=== PATIENT | male | born 1970 | race Caucasian/White ===

== ENCOUNTER 2018-10-12 01:16 | Emergency (ER) | payer SELFPAY ==
[~2018-10-12] VITALS: Ht 175.3 cm; Wt 87.0 kg
[2018-10-12 01:19] VITALS: BP 126/98
== END 2018-10-12 02:09 | disposition left against medical advice (07) ==
LOC: ER 01:16
DX: F10.10 Alcohol abuse, uncomplicated (principal); Z53.21 Procedure and treatment not carried out due to patient leaving prior to being seen by health care provider; Y90.9 Presence of alcohol in blood, level not specified